=== PATIENT | male | born 1970 | race Caucasian/White ===

== ENCOUNTER 2018-08-13 16:17 | Emergency (ER) | payer MEDICAID ==
[2018-08-13] MEDS: SOD CHLORIDE 0.9% 1,000 ML IV (17:14)
[2018-08-13] MEDS: MECLIZINE 12.5 MG TAB PO (17:14)
[2018-08-13 17:23] LABS: ADD MAN DIFF? NO
[2018-08-13 17:25] LABS: WHITE BLOOD COUNT 9.1 10^3/ul (4.8-10.8)
[2018-08-13 17:25] LABS: ABNORMAL IP MESSAGE 1; BASOPHILS % 0.4 % (0.0-2.0); EOSINOPHILS # 0.1 10^3/ul (0.0-0.5); EOSINOPHILS % 1.3 % (0.0-7.0); HEMATOCRIT 45.9 % (42.0-52.0); HEMOGLOBIN 15.5 g/dl (14.0-18.0); LYMPHOCYTES # 2.6 10^3/ul (0.8-2.9); LYMPHOCYTES % 29.1 % (15.0-51.0); MEAN CORPUSCULAR HEMOGLOBIN 29.8 pg (29.0-33.0); MEAN CORPUSCULAR HGB CONC 33.8 g/dl (32.0-37.0); MEAN CORPUSCULAR VOLUME 88.1 fl (82.0-101.0); MEAN PLATELET VOLUME 13.2 fl (7.4-10.4); MONOCYTE # 0.6 10^3/ul (0.3-0.9); MONOCYTES % 6.3 % (0.0-11.0); NEUTROPHIL # 5.7 10^3/ul (1.6-7.5); NEUTROPHILS % 62.5 % (39.0-77.0); PLATELET COUNT 144 10^3/UL (140-415); POSITIVE DIFF @See below; RED BLOOD COUNT 5.21 10^6/ul (4.70-6.10); RED CELL DISTRIBUTION WIDTH 12.4 % (11.5-14.5)
[2018-08-13 17:47] LABS: ANION GAP 8 (5-13); BLOOD UREA NITROGEN 19 mg/dl (7-20); CALCIUM 9.1 mg/dl (8.4-10.2); CARBON DIOXIDE 24 mmol/L (21-31); CHLORIDE 110 mmol/L (97-110); Estimated GFR > 60 mL/min (>60); GLUCOSE 122 mg/dl (70-220); SODIUM 142 mmol/L (135-144)
[2018-08-13 17:59] LABS: TROPONIN-I < 0.012 ng/ml (0.000-0.120)
== END 2018-08-13 18:52 | disposition home or self-care (01) ==
LOC: FTE 16:17
DX: R42 Dizziness and giddiness (principal); F17.210 Nicotine dependence, cigarettes, uncomplicated; Z63.79 Other stressful life events affecting family and household
CPT/HCPCS: 36415; 70450; 80048; 84484; 85025; 93005; 96360; 99285-25